=== PATIENT | female | born 1945 | race Caucasian/White ===

== ENCOUNTER 2017-12-24 09:19 | Observation (INO) | payer MEDICARE, OTHER ==
[~2017-12-24] VITALS: Ht 157.5 cm; Wt 69.6 kg
--- NOTE | 2017-12-24 09:21 | NUR ---
PATIENT BACK TO ROOM VIA WHEELCHAIR, PATIENT TALKING ON CELLPHONE.
[2017-12-24 09:52] LABS: HEMATOCRIT 41.8 % (37.0-47.0); HEMOGLOBIN 14.4 g/dl (12.0-16.0); IMMATURE GRANULOCYTES 0.2 % (0.0-1.0); MEAN CELL VOLUME 97.7 fL CALC (80.0-100.0); MEAN CORPUSCULAR HGB 33.6 pG CALC (26.0-32.0); MEAN CORPUSCULAR HGB CONC 34.4 g/L CALC (32.0-36.0); NEUT# 2.34 thou/uL (2.00-7.15); RED BLOOD COUNT 4.28 mill/uL (4.20-5.60); RED CELL DISTRI WIDTH 12.5 % (11.5-15.5)
[2017-12-24 10:14] LABS: ANION GAP 15 (6-22 (CALC)); BUN 14 mg/dL (8-23); BUN/CREATININE RATIO 21 (12-20 (CALC)); CARBON DIOXIDE 26 mmol/l (22-30); CHLORIDE 105 mmol/l (95-108); CREATININE 0.7 mg/dL (0.5-1.0); GFR > 60 ML/MIN (>=60 (CALC)); GFR FOR AFR.AMER. > 60 ML/MIN (>=60 (CALC)); POTASSIUM 4.7 mmol/l (3.5-5.1); SODIUM 142 mmol/l (137-146)
--- NOTE | 2017-12-24 10:30 | NUR ---
PATIENT RESTING ON STRETCHER READING A BOOK. RESPIRATIONS EVEN AND UNLABORED. PATIENT REPORTS CHEST PAIN 01/30. DENIES NEED FOR PAIN MEDICATION. STATES "I DONT WANT TO STAY THE NIGHT."
[2017-12-24] MEDS ORDERED: OMEPRAZOLE10 MG PO (10:52)
[2017-12-24] MEDS ORDERED: SYNTHROID112 MCG PO (10:52)
--- NOTE | 2017-12-24 10:53 | NUR ---
MD AT BEDSIDE TO DISCUSS RESULTS.
--- NOTE | 2017-12-24 11:12 | NUR ---
PATIENT AGREES TO ADMISSION. INFORMED.
--- NOTE | 2017-12-24 11:50 | NUR ---
ATTEMPT MADE TO CALL REPORT, SPOKE TO YANDY. STATES "NURSE IN ROOM."
--- NOTE | 2017-12-24 12:00 | NUR ---
PATIENT TRANSPORTED TO [facility] WITH TELE IN PLACE VIA STRETCHER. BEDSIDE REPORT GIVEN TO MARIN GUPTA. CARE RELINQUISHED AT THIS TIME.
--- NOTE | 2017-12-24 12:02 | NUR ---
REPORT GIVEN TO MARIN GUPTA.
[2017-12-24 12:12] VITALS: BP 122/74
--- NOTE | 2017-12-24 12:22 | NUR ---
REPORT RECEIVED FROM PAU IN ED, PT ARRIVED ON UNIT VIA STRETCHER @ 1200 AND AMBULATED TO ROOM, ALERT AND ORIENTED X 4, ORIENTED TO ROOM AND CALL WONG, C/O BURNING PAIN ORIGINATING FROM MID-STERNAL AREA AND RADIATING UNDER LEFT BREAST TO LEFT SIDE. STATES SITTING UP IN CHAIR MAKES IT WORSE. PAIN LEVEL AT THIS TIME IS 4/10, WILL CONTINUE TO MONITOR AND ADDRESS NEEDS/CONCERNS.
[2017-12-24 13:09] LABS: URINE BILIRUBIN - DIPSTICK NEGATIVE (NEGATIVE); URINE BLOOD DIPSTICK NEGATIVE (NEGATIVE); URINE COLOR YELLOW; URINE GLUCOSE - DIPSTICK NEGATIVE (NEGATIVE); URINE KETONE NEGATIVE (NEGATIVE); URINE NITRITE - DIPSTICK NEGATIVE (Negative); URINE PH 7.5 (4.5-8.0); URINE PROTEIN - DIPSTICK NEGATIVE (NEG-TRACE); URINE UROBILINOGEN - DIPSTICK 0.2 E.U./dL (0.2)
[2017-12-24 13:10] LABS: URINE CLARITY CLEAR
[2017-12-24 13:11] LABS: URINE LEUK ESTERASE TRACE (Negative)
[2017-12-24 15:30] VITALS: BP 101/59
--- NOTE | 2017-12-24 16:24 | NUR ---
Patient is feeling the same; chest pain underneath breast that radiates to her back. Patient denied any side effects pertaining to administered medicatios. ccc
[2017-12-24 18:00] VITALS: BP 116/69
--- NOTE | 2017-12-24 19:00 | NUR ---
RECEIVED CHANGE OF SHIFT REPORT FROM MARIN GUPTA. PATIENT A/O AND SITTING UP IN BED. FAMILY AT BEDSIDE. NO APPARENT ACUTE DISTRESS OR DISCOMFORT AT THIS TIME. WILL CONTINUE TO MONITOR.
[2017-12-25] VITALS: BP 101/58; BP 143/66
--- NOTE | 2017-12-25 | NUR ---
PATIENT AWAKE AND LYING IN BED. NO APPARENT ACUTE DISTRESS NOTED. NO VOICED COMPLAINTS AT THIS TIME.
[2017-12-25 04:00] VITALS: BP 110/75
--- NOTE | 2017-12-25 04:00 | NUR ---
NO APPARENT ACUTE CHANGES NOTED IN PATIENT'S CONDITION.
[2017-12-25 06:34] LABS: HEMATOCRIT 40.1 % (37.0-47.0); HEMOGLOBIN 13.8 g/dl (12.0-16.0); MEAN CELL VOLUME 96.9 fL CALC (80.0-100.0); MEAN CORPUSCULAR HGB 33.3 pG CALC (26.0-32.0); MEAN CORPUSCULAR HGB CONC 34.4 g/L CALC (32.0-36.0); NEUT# 2.04 thou/uL (2.00-7.15); RED BLOOD COUNT 4.14 mill/uL (4.20-5.60); RED CELL DISTRI WIDTH 12.4 % (11.5-15.5)
[2017-12-25 07:01] LABS: ANION GAP 13 (6-22 (CALC)); BUN 17 mg/dL (8-23); BUN/CREATININE RATIO 23 (12-20 (CALC)); CALCULATED LDLCHOLESTEROL 113 mg/dL (62-129 (CALC)); CARBON DIOXIDE 26 mmol/l (22-30); CHLORIDE 107 mmol/l (95-108); CREATININE 0.7 mg/dL (0.5-1.0); GFR > 60 ML/MIN (>=60 (CALC)); GFR FOR AFR.AMER. > 60 ML/MIN (>=60 (CALC)); HDL CHOLESTEROL 63 mg/dL (>=40); MAGNESIUM 2.1 mg/dL (1.6-2.3); POTASSIUM 4.4 mmol/l (3.5-5.1); SODIUM 141 mmol/l (137-146); TOTAL CHOLESTEROL 188 mg/dl (0-199); TOTAL TRIGLYCERIDES 64 mg/dl (30-149); VLDL CHOLESTROL 13 mg/dl (0-48 (CALC))
--- NOTE | 2017-12-25 08:00 | NUR ---
PT.UPRIGHT ON SIDE OF BED EATING BREAKFAST. FAMILY AT BEDSIDE. PT.REPORTS ACHE 3/10 UNDER LEFT BREAST STEADY. DENIES ANY OTHER DISCOMFORT AND NO S/S OF DISTRESS. CALL LIGHT IS W/IN REACH. PT.DISCUSSED GETTING A SHOWER AFTER BREAKFAST/ INSTRUCTED TO CALL WHEN FINISHED WITH BREAKFAST AND WE WILL ASSIST.
[2017-12-25 08:08] VITALS: BP 120/68
--- NOTE | 2017-12-25 10:07 | NUR ---
PT.UPRIGHT IN BED W/SPOUSE AT BEDSIDE. PT. ASSESSED, LUNG SOUNDS ARE CLEAR. ABD SOFT/NON-TENDER/REPORTS LAST BM TODAY AND NO DIFFICULTY URINATING. POC DISCUSSED W/PT AND SPOUSE. CALL LIGHT IS AT SIDE AND PT.INSTRUCTED TO CALL IF ANY NEEDS ARISE.
[2017-12-25 11:05] VITALS: BP 103/57
--- NOTE | 2017-12-25 14:54 | NUR ---
PT.DISCHARGED SELF AMBULATORY IN GOOD CONDITION OFF UNIT FLOOR ACCOMPANIED BY . IV REMOVED/SITE APPEARS HEALTHY AT THIS TIME AND CANT HOOKER HAS BEEN REMOVED. ER CALLED PREVIOUSLY TO REMOVING MONITOR.
[2017-12-31] MEDS ORDERED: GABAPENTIN100 MG PO (11:14)
== END 2017-12-25 14:54 | disposition home or self-care (01) ==
LOC: ED 09:19 → ED-I 11:00 → ED 11:28 → MS2 11:29
PROVIDERS: Family Medicine; Nurse Practitioner Family; ADMIT Internal Medicine; ATTEND Internal Medicine
DX: R07.89 Other chest pain (principal); E03.9 Hypothyroidism, unspecified; M19.90 Unspecified osteoarthritis, unspecified site; R00.1 Bradycardia, unspecified; K21.9 Gastro-esophageal reflux disease without esophagitis; F41.1 Generalized anxiety disorder; R06.00 Dyspnea, unspecified; Z87.891 Personal history of nicotine dependence
CPT/HCPCS: G0378

== ENCOUNTER 2018-01-06 06:20 | Day surgery (SDC) | payer MEDICARE, OTHER ==
[~2018-01-06] VITALS: Ht 156.2 cm; Wt 68.9 kg
[~2018-01-06 06:20] MED LIST: GABAPENTIN100 MG PO; OMEPRAZOLE10 MG PO; SYNTHROID112 MCG PO
[2018-01-06 08:54] VITALS: BP 179/83
== END 2018-01-06 09:10 | disposition home or self-care (01) ==
LOC: ENDO 06:20 → ORM 08:45 → ENDO 08:45
PROVIDERS: ATTEND Surgery
PROC: 0DB48ZX Excision of Esophagogastric Junction, Via Natural or Artificial Opening Endoscopic, Diagnostic (ICD-10-PCS; principal; 2018-01-06)
PROC: 0DB78ZX Excision of Stomach, Pylorus, Via Natural or Artificial Opening Endoscopic, Diagnostic (ICD-10-PCS; 2018-01-06)
PROC: 0DJD8ZZ Inspection of Lower Intestinal Tract, Via Natural or Artificial Opening Endoscopic (ICD-10-PCS; 2018-01-06)
DX: K21.9 Gastro-esophageal reflux disease without esophagitis (principal); K59.00 Constipation, unspecified; K29.50 Unspecified chronic gastritis without bleeding; Q43.9 Congenital malformation of intestine, unspecified; E03.9 Hypothyroidism, unspecified; M19.90 Unspecified osteoarthritis, unspecified site; Z79.899 Other long term (current) drug therapy

== ENCOUNTER → 2019-01-13 | Outpatient (REF) | payer MEDICARE, OTHER ==
[2019-01-13 12:58] LABS: GFR > 60 ML/MIN (>=60 (CALC)); GFR FOR AFR.AMER. > 60 ML/MIN (>=60 (CALC))
== END | disposition home or self-care (01) ==
LOC: CT 12:31
PROVIDERS: ATTEND Nurse Practitioner Family
DX: R10.11 Right upper quadrant pain (principal); R10.9 Unspecified abdominal pain; R19.00 Intra-abdominal and pelvic swelling, mass and lump, unspecified site
CPT/HCPCS: Q9967

== ENCOUNTER → 2019-01-21 | Outpatient (REF) | payer MEDICARE, OTHER | END | disposition home or self-care (01) | LOC: ULTRASND 08:33 | PROVIDERS: ATTEND Nurse Practitioner Family | DX: N94.89 Other specified conditions associated with female genital organs and menstrual cycle (principal); R19.04 Left lower quadrant abdominal swelling, mass and lump ==